=== PATIENT | male | born 1940 | race Caucasian/White ===

== ENCOUNTER 2017-12-18 06:52 | Day surgery (SDC) | payer MEDICARE, OTHER ==
[~2017-12-18 06:52] MED LIST: BUPIVACAINE HCL 0.75% INJ/PF (7.5 MG/1 ML) 10 ML SDV OS PRN; KETOROLAC TROMETHAMINE 0.45% 4 DROP/0.4 ML DROPERETTE OS PRN; LIDOCAINE 4% INJ/PF (40 MG/ML) 5 ML AMPUL OS PRN
[2017-12-18] MEDS ORDERED: CHONDR SU A NA/HYALUR INTRAOC KIT (SURGICARE) ONE (07:26)
[2017-12-18] MEDS ORDERED: LIDOCAINE 1% INJ-PF (10 MG/ML) 30 ML SDV ONE (07:26)
[2017-12-18] MEDS ORDERED: EPINEPHRINE INJ/PF 1 MG/1 ML AMPULE ONE (07:26)
[2017-12-18] MEDS: TROPICAMIDE 1% OPH SOLN 3 ML OS PRN ×3 (07:46→08:06)
[2017-12-18] MEDS: CYCLOPENTOLATE 0.2%/PHENYLEPHRINE 1% OPH SOLN 2 ML OS PRN ×3 (07:46→08:06)
[2017-12-18] MEDS: BESIFLOXACIN HCL 0.6% OPH SUSP 5 ML BOTTLE OS PRN ×4 (07:47→08:49)
[2017-12-18] MEDS: TETRACAINE HCL 0.5% OPH SOLN 0.6 ML DROPERETTE OS PRN ×2 (07:48→08:18)
[2017-12-18] MEDS ORDERED: MIDAZOLAM 2 MG/2 ML INJ ONE (08:07)
[2017-12-18] MEDS ORDERED: FENTANYL CITRATE INJ/PF 100 MCG/2 ML AMPUL ONE (08:08)
[2017-12-18] MEDS ORDERED: ONDANSETRON HCL INJ/PF 4 MG/2 ML SDV ONE (08:08)
--- NOTE | 2017-12-18 09:10 | [facility] OPERATIVE REPORT E ---
[facility] Operative Report NAME: FREIDA CORNELL AGE: 77Y DATE OF SURGERY: 12/18/2017 ROOM: PREOPERATIVE DIAGNOSIS: Cataract, left eye. POSTOPERATIVE DIAGNOSIS: Cataract, left eye. PROCEDURE PERFORMED: Phacoemulsification with posterior chamber intraocular lens, left eye. SURGEON: CHAUNCEY LOYA M.D. ANESTHESIA: Topical with MAC. INDICATIONS FOR SURGERY: Difficulty reading road signs with small print. Best corrected visual acuity 20/60 with glare. PROCEDURE: The patient was brought to the Operating Room and placed on the operative table. Following tetracaine drops, topical anesthesia was administered. This consisted of instrument wipe pledgets soaked in a solution of 4% Xylocaine mixed with 0.75% Marcaine in a 1:2 ratio. A 2 x 1 cm pledget was placed in the superior fornix. A 1 x 1 cm pledget was placed in the inferior fornix. The eye was patched shut for 5 minutes. The patch was removed. The eye was sterilely prepped and draped in the usual manner. Lid speculum was placed in the eye. The pledgets were removed. 4-0 black silk sutures were placed around the superior and the inferior rectus muscles to be used as traction. A conjunctival peritomy was made at the 10 o'clock position. Hemostasis was obtained with bipolar cautery. A posterior limbal groove was created using a crescent knife and dissected anteriorly towards the cornea. A sharp point blade was used to create a paracentesis site at the 2 o'clock position. A 2.4 mm keratome was used to enter the anterior chamber through the groove. Viscoelastic was injected into the anterior chamber. An anterior capsulotomy was performed using Utrata forceps in a capsulorrhexis fashion. Hydrodissection and hydrodelineation were performed. Phacoemulsification was performed in oilbah-eeb-nxcjeyt technique. A total of 4.71 CDE phaco time was used. Following this, the I/A unit was used to remove residual cortex. Viscoelastic was injected into the capsular bag. Intraocular lens model SN60WF, 19.5 diopters, serial number [id number] was placed in the capsular bag. The I/A unit was used to remove residual viscoelastic. The wound was seen to be watertight under high and low pressure, and no sutures were placed. The intraocular lens was well centered. The pressure was adjusted in the eye to normal pressure. The 4-0 black silk sutures and lid speculum were removed. The eye was shielded after Besivance drops were placed. The patient tolerated the procedure well and was sent to the Recovery Room in good condition. DICTATING PHYSICIAN: CHAUNCEY LOYA M.D. [id number] PHY#: [id number] ID: [id number] JOB#: [id number] ACCT: [id number] cc:CHAUNCEY LOYA M.D. >
--- NOTE | 2017-12-18 09:14 | [facility] DISCHARGE SUMMARY E ---
[facility] Discharge Summary NAME: FREIDA CORNELL AGE: 77Y ADMITTED: 12/18/2017 DISCHARGED: 12/18/2017 HOSPITAL COURSE: The patient is a 77-year-old gentleman who underwent uneventful cataract extraction with intraocular lens implant left eye on 12/18/2017. He will be discharged to home. He is instructed to resume preoperative medications, take Tylenol as needed for discomfort, to keep his eye shielded, to use Besivance, Durezol, and Ilevro at 3 p.m. and 8 p.m., and to follow up in my office in 1 day. DICTATING PHYSICIAN: CHAUNCEY LOYA M.D. [id number] PHY#: [id number] ID: [id number] JOB#: [id number] ACCT: [id number] cc:CHAUNCEY LOYA M.D. >
== END 2017-12-18 09:22 | disposition home or self-care (01) ==
LOC: SC 06:52
PROVIDERS: ATTEND Ophthalmology
DX: H25.812 Combined forms of age-related cataract, left eye (principal); I10 Essential (primary) hypertension; M10.9 Gout, unspecified; Z79.899 Other long term (current) drug therapy
CPT/HCPCS: 66984; V2632; J2250; J3490 ×4; A9270; J0171; J2405; 142; J3010

== ENCOUNTER 2018-01-15 06:52 | Day surgery (SDC) | payer MEDICARE, OTHER ==
[~2018-01-15 06:52] MED LIST changes: +BUPIVACAINE HCL 0.75% INJ/PF (7.5 MG/1 ML) 10 ML SDV OD PRN; -BUPIVACAINE HCL 0.75% INJ/PF (7.5 MG/1 ML) 10 ML SDV OS PRN; +KETOROLAC TROMETHAMINE 0.45% 4 DROP/0.4 ML DROPERETTE OD PRN; -KETOROLAC TROMETHAMINE 0.45% 4 DROP/0.4 ML DROPERETTE OS PRN; +LIDOCAINE 4% INJ/PF (40 MG/ML) 5 ML AMPUL OD PRN; -LIDOCAINE 4% INJ/PF (40 MG/ML) 5 ML AMPUL OS PRN; +TETRACAINE HCL 0.5% OPH SOLN 0.6 ML DROPERETTE OD PRN
[2018-01-15] MEDS ORDERED: DEXAMETHASONE SOD PHOSPHATE INJ 4 MG/1 ML VIAL ONE (07:18)
[2018-01-15] MEDS ORDERED: MIDAZOLAM 2 MG/2 ML INJ ONE (07:18)
[2018-01-15] MEDS ORDERED: FENTANYL CITRATE INJ/PF 100 MCG/2 ML AMPUL ONE (07:18)
[2018-01-15] MEDS: TROPICAMIDE 1% OPH SOLN 3 ML OD PRN ×2 (07:53→08:03)
[2018-01-15] MEDS: CYCLOPENTOLATE 0.2%/PHENYLEPHRINE 1% OPH SOLN 2 ML OD PRN ×2 (07:53→08:03)
[2018-01-15] MEDS: BESIFLOXACIN HCL 0.6% OPH SUSP 5 ML BOTTLE OD PRN ×4 (07:54→08:48)
[2018-01-15] MEDS: EPINEPHRINE INJ/PF 1 MG/1 ML AMPULE ONE ×2 (08:37)
[2018-01-15] MEDS: LIDOCAINE 1% INJ-PF (10 MG/ML) 30 ML SDV ONE ×2 (08:37)
[2018-01-15] MEDS: CHONDR SU A NA/HYALUR INTRAOC KIT (SURGICARE) ONE ×2 (08:37)
[2018-01-15] MEDS ORDERED: BRIMONIDINE TARTRATE 0.2% OPH SOLN 5 ML ONE (09:56)
[2018-01-15] MEDS ORDERED: BRIMONIDINE TARTRATE 0.2% OPH SOLN 5 ML OD ONE (10:00)
--- NOTE | 2018-01-15 13:20 | [facility] DISCHARGE SUMMARY E ---
[facility] Discharge Summary NAME: FREIDA CORNELL AGE: 77Y ADMITTED: 01/15/2018 DISCHARGED: 01/15/2018 HOSPITAL COURSE: The patient is a 77-year-old gentleman who underwent uneventful cataract extraction with intraocular lens implant, right eye, on 01/15/2018. He will be discharged to home. He was instructed to resume preoperative medications, take Tylenol as needed for discomfort, keep his eye shielded, to use Besivance, Durezol and Ilevro at 3 p.m. and 8 p.m., and to follow up in my office in 1 day. DICTATING PHYSICIAN: CHAUNCEY LOYA M.D. [id number] PHY#: [id number] ID: [id number] JOB#: [id number] ACCT: [id number] cc:CHAUNCEY LOYA M.D. >
--- NOTE | 2018-01-15 13:20 | [facility] OPERATIVE REPORT E ---
[facility] Operative Report NAME: FREIDA CORNELL AGE: 77Y DATE OF SURGERY: 01/15/2018 ROOM: PREOPERATIVE DIAGNOSIS: CATARACT, RIGHT EYE. POSTOPERATIVE DIAGNOSIS: CATARACT, RIGHT EYE. OPERATION: PHACOEMULSIFICATION WITH POSTERIOR CHAMBER INTRAOCULAR LENS, @ EYE. SURGEON: Meaghan Loya MD. PROCEDURE: Phacoemulsification with posterior chamber intraocular lens, right eye. ANESTHESIA: Topical with MAC. INDICATIONS FOR SURGERY: Difficulty reading small print. Best corrected visual acuity 20/40. DESCRIPTION OF PROCEDURE: The patient was brought to the Operating Room and placed on the operative table. Following tetracaine drops, topical anesthesia was administered. This consisted of instrument wipe pledgets soaked in a solution of 4% Xylocaine mixed with 0.75% Marcaine in a 1:2 ratio. A 2 x 1 cm pledget was placed in the superior fornix. A 1 x 1 cm pledget was placed in the inferior fornix. The eye was patched shut for 5 minutes. The patch was removed. The eye was sterilely prepped and draped in the usual manner. Lid speculum was placed in the eye. The pledgets were removed. 4-0 black silk sutures were placed around the superior and the inferior rectus muscles to be used as traction. A conjunctival peritomy was made at the 10 o'clock position. Hemostasis was obtained with bipolar cautery. A posterior limbal groove was created using a crescent knife and dissected anteriorly towards the cornea. A sharp point blade was used to create a paracentesis site at the 2 o'clock position. A 2.4 mm keratome was used to enter the anterior chamber through the groove. Viscoelastic was injected into the anterior chamber. An anterior capsulotomy was performed using Utrata forceps in a capsulorrhexis fashion. Hydrodissection and hydrodelineation were performed. Phacoemulsification was performed in uejxvu-ewi-vdmnatm technique. A total of 4.63 seconds CDE phaco time was used. Following this, the I/A unit was used to remove residual cortex. Viscoelastic was injected into the capsular bag. Intraocular lens model SN60WF, 19.0 diopters, serial number [id number] was placed in the capsular bag. The I/A unit was used to remove residual viscoelastic. The wound was seen to be watertight under high and low pressure, and no sutures were placed. The intraocular lens was well centered. The pressure was adjusted in the eye to normal pressure. The 4-0 black silk sutures and lid speculum were removed. The eye was shielded after Besivance drops were placed. The patient tolerated the procedure well and was sent to the Recovery Room in good condition. DICTATING PHYSICIAN: MEAGHAN LOYA M.D. SURGEON: MEAGHAN LOYA M.D. ANESTHESIA: @ TISSUE REMOVED OR ALTERED: @ PROCEDURE: @ DICTATING PHYSICIAN: MEAGHAN LOYA M.D. [id number] PHY#: [id number] ID: [id number] JOB#: [id number] ACCT: [id number] cc:MEAGHAN LOYA M.D. >
== END 2018-01-15 09:24 | disposition home or self-care (01) ==
LOC: SC 06:52
PROVIDERS: ATTEND Ophthalmology
DX: H25.811 Combined forms of age-related cataract, right eye (principal); Z96.1 Presence of intraocular lens; I10 Essential (primary) hypertension; M19.90 Unspecified osteoarthritis, unspecified site; G47.30 Sleep apnea, unspecified; M10.9 Gout, unspecified; Z79.899 Other long term (current) drug therapy; Z79.82 Long term (current) use of aspirin; Z85.828 Personal history of other malignant neoplasm of skin
CPT/HCPCS: 66984; V2632; J2250; J3490 ×5; A9270; J1100; J0171; J3010; 142

== ENCOUNTER → 2018-02-15 | Outpatient (CLI) | payer MEDICARE, OTHER ==
--- NOTE | 2018-02-15 14:08 | RADIOLOGY REPORT (SQ) ---
EXAM DESCRIPTION: CT ABD/PELVIS NO ORAL OR IV COMPLETED DATE/TIME: 02/15/2018 1:29 pm REASON FOR STUDY: ABD PAIN,CHRONIC KIDNEY DISEASE, STAGE 3 (MODERATE R10.9 UNSPECIFIED ABDOMINAL PA IN N18.3 CHRONIC KIDNEY DISEASE, STAGE 3 (MODERATE) COMPARISON: None. TECHNIQUE: CT scan of the abdomen and pelvis performed without intravenous or oral contrast. Images reviewed with lung, soft tissue, and bone windows. Reconstructed coronal and sagittal MPR images revi ewed. All images stored on PACS. All CT scanners at this facility use dose modulation, iterative reconstruction, and/or weight based d osing when appropriate to reduce radiation dose to as low as reasonably achievable (ALARA). [facility]: Dose Right [facility]: CareDose [facility]: Dose Right [facility]: Teradose 4D [facility]: Smart [employer] RADIATION DOSE: CT Rad equipment meets quality standard of care and radiation dose reduction techniq ues were employed. CTDIvol: 15.9 mGy. DLP: 879 mGy-cm.mGy. LIMITATIONS: None. FINDINGS: LOWER CHEST: Small hiatal hernia. Lung bases are clear NON-CONTRASTED LIVER, SPLEEN, ADRENALS: Fatty liver. Spleen and adrenal glands are unremarkable. PANCREAS: No masses. No peripancreatic inflammatory changes. GALLBLADDER: No identified stones by CT criteria. No inflammatory changes to suggest cholecystitis. RIGHT KIDNEY AND URETER: No suspicious masses. Assessment limited by lack of IV contrast. Multiple tiny calcifications at the right renal hilum and calices, likely tiny intrarenal nonobstructive stone s. Vascular calcifications may also be present. No hydronephrosis or hydroureter. LEFT KIDNEY AND URETER: No suspicious masses. Assessment limited by lack of IV contrast. Multiple t iny calcifications at the left renal hilum and calices, the largest is 3 mm left lower pole kidney li ladarius small intrarenal nonobstructive stones. Vascular calcifications may also be present. No hydro nephrosis or hydroureter. AORTA AND RETROPERITONEUM: No aneurysm. No retroperitoneal masses or adenopathy. BOWEL AND PERITONEAL CAVITY: No free intraperitoneal air. No bowel obstruction. No obvious masses o r inflammatory changes. No free fluid. APPENDIX: Surgically absent PELVIS, BLADDER, AND ABDOMINAL WALL:No abnormal masses. No free fluid. Bladder normal. BONES: Bilateral spondylolysis at L5 with grade 1 anterolisthesis OTHER: No other significant finding. IMPRESSION: No acute findings. Fatty liver, tiny bilateral intrarenal nonobstructive kidney stones. Post appendectomy. COMMENT: Quality ID # [id number]: Final reports with documentation of one or more dose reduction techniques (e.g., Automated exposure control, adjustment of the mA and/or kV according to patient size, use of iterative reconstruction technique) TECHNICAL DOCUMENTATION: JOB ID: [id number] [employer]- All Rights Reserved Reading location - IP/workstation name: [email or web address] [id number]
== END ==
LOC: RAD 12:54
PROVIDERS: ATTEND Internal Medicine Nephrology
DX: R10.9 Unspecified abdominal pain (principal); N18.3 Chronic kidney disease, stage 3 (moderate); N20.0 Calculus of kidney
CPT/HCPCS: 74176